=== PATIENT | female | born 1990 | race Caucasian/White ===

== ENCOUNTER 2024-10-26 12:18 | Emergency (ER) | payer SELFPAY ==
[2024-10-26] MEDS: Sodium Chloride 0.9% 1,000 ML IV SCH (12:52)
[2024-10-26] MEDS: Ondansetron 4 MG/2 ML SDV IVPUSH ONE (12:53)
[2024-10-26 13:07] LABS: BASOPHILS ABSOLUTE AUTO 0.02 K/uL (0.02-0.10); BASOPHILS PERCENT AUTO 0.5 % (0.0-0.5); EOSINOPHILS ABSOLUTE AUTO 0.01 K/uL (0.04-0.40); EOSINOPHILS PERCENT AUTO 0.3 % (1.0-5.0); HEMATOCRIT 31.1 % (37.0-47.0); HEMOGLOBIN 9.2 g/dL (11.5-16.5); LYMPHOCYTES ABSOLUTE AUTO 0.52 K/uL (1.50-4.00); LYMPHOCYTES PERCENT AUTO 13.4 % (20.0-40.0); MEAN CORPUSCULAR HEMOGLOBIN 19.4 pg (27.0-32.0); MEAN CORPUSCULAR HGB CONC 29.6 g/dL (31.0-35.0); MEAN CORPUSCULAR VOLUME 66 fL (76-96); MEAN PLATELET VOLUME 10.8 fL (6.0-10.0); MONOCYTES ABSOLUTE AUTO 0.23 K/uL (0.20-0.80); MONOCYTES PERCENT AUTO 5.9 % (3.0-10.0); NEUTROPHILS ABSOLUTE AUTO 3.09 K/uL (2.00-7.50); NEUTROPHILS PERCENT AUTO 79.9 % (45.0-70.0); PLATELET COUNT,PLT 424 K/uL (150-500); RED BLOOD CELL COUNT 4.74 M/uL (3.80-5.80); RED CELL DISTRIBUTION WIDTH 19.8 % (11.0-16.0); WHITE BLOOD CELL COUNT,WBC 3.9 K/uL (4.0-11.0)
[2024-10-26 13:16] LABS: ANION GAP 17.1 mmol/L (5.0-15.0); BUN/CREATININE RATIO 10.4 (6-25); C-REACTIVE PROTEIN 26.2 mg/L (<5.0); CALCIUM 8.2 mg/dL (8.5-10.1); CARBON DIOXIDE,CO2 21.2 mmol/L (21.0-32.0); CREATININE 0.77 mg/dL (0.55-1.02); EST CRCL DRUG DOSING (CG) 76.22 mL/min; POTASSIUM,K 3.3 mmol/L (3.5-5.1)
[2024-10-26] MEDS: Ketorolac 30 MG/ML SDV IVPUSH ONE (13:17)
[2024-10-26] MEDS ORDERED: Naloxone 2 MG/2 ML Syringe IVPUSH PRN (14:15)
[2024-10-26] MEDS: Morphine 2 MG/ML SYRINGE IVPUSH ONE (14:17)
[2024-10-26 16:34] VITALS: BP 107/68; PULSE 85
== END 2024-10-26 14:49 | disposition home or self-care (01) ==
LOC: LB.ED 12:18
DX: K52.9 Noninfective gastroenteritis and colitis, unspecified (principal); D50.0 Iron deficiency anemia secondary to blood loss (chronic); Z88.0 Allergy status to penicillin; Z79.899 Other long term (current) drug therapy
CPT/HCPCS: 36415; 80048; 85025; 86140; 96361; 96374; 96375; 99284; 99284-25; J1885; J2270; J2405; J7030